=== PATIENT | male | born 1990 | race African-American/Black ===

== ENCOUNTER 2018-08-18 18:12 | Emergency (ER) | payer OTHER ==
[~2018-08-18] VITALS: Ht 177.8 cm; Wt 150.0 kg
[2018-08-18] MEDS ORDERED: HYD50 PO (18:21)
[2018-08-18] MEDS ORDERED: CEPHALEXIN MONOHYDRATE 500 MG CAPSULE PO ONE (20:45)
[2018-08-18] MEDS ORDERED: HYDROCODONE/ACETAMINOPHEN 5-325 MG TABLET PO ONE (20:45)
[2018-08-18] MEDS ORDERED: SULFAMETHOX/TRIMETH DS 800-160 MG/TABLET PO ONE (20:45)
[2018-08-18 21:15] VITALS: BP 149/97
[2018-08-19] MEDS ORDERED: TRAZ-220 PO (17:14)
== END 2018-08-18 21:21 | disposition home or self-care (01) ==
LOC: EMS 18:14
DX: L73.2 Hidradenitis suppurativa (principal); Z79.899 Other long term (current) drug therapy; F41.9 Anxiety disorder, unspecified

== ENCOUNTER 2018-08-19 16:35 | Emergency (ER) | payer OTHER ==
[~2018-08-19] VITALS: Ht 157.5 cm; Wt 150.0 kg
[~2018-08-19 16:35] MED LIST: HYD50 PO
[2018-08-19] MEDS ORDERED: TRAZ-220 PO (17:14)
[2018-08-19] MEDS ORDERED: HydrOXYzine PAMOATE 25 MG CAPSULE PO ONE (18:45)
[2018-08-19 18:53] LABS: BASOPHILS % (AUTO) 1.1 % (0.0-2.0); EOSINOPHILS % (AUTO) 4.4 % (1.0-6.0); HEMATOCRIT 48.9 % (41-53); LYMPHOCYTES # (AUTO) 3.1 K/uL (1.0-4.8); LYMPHOCYTES % (AUTO) 42.6 % (22.0-44.0); MEAN CORPUSCULAR HEMOGLOBIN 25.6 pg (26.0-34.0); MEAN CORPUSCULAR HGB CONC 32.8 G/dL (31.0-37.0); MEAN CORPUSCULAR VOLUME 78 fL (80-100); MONOCYTES # (AUTO) 0.7 K/uL (0.1-1.0); MONOCYTES % (AUTO) 9.1 % (2.0-9.0); NEUTROPHILS # (AUTO) 3.1 K/uL (1.8-7.7); NEUTROPHILS % (AUTO) 42.8 % (40.0-70.0); PLATELET COUNT (AUTO) 341 K/uL (150-450); RED BLOOD CELL COUNT(AUTO) 6.27 MIL/uL (4.50-5.90); RED CELL DISTRIBUTION WIDTH 13.6 % (11.5-14.5)
[2018-08-19 18:56] VITALS: BP 138/81
[2018-08-19 18:59] LABS: ANION GAP 9 mmol/L (8-16); CALCIUM, TOTAL 8.7 mg/dL (8.8-10.5); CARBON DIOXIDE 26 mmol/L (22-29); CHLORIDE 103 mmol/L (98-107); CREATININE 1.03 mg/dL (0.60-1.30); GLOMERULAR FILTR. RATE CALC > 60 mL/min (>60); GLUCOSE,RANDOM 102 mg/dL (70-110); POTASSIUM 4.1 mmol/L (3.5-5.1); SODIUM SERUM 138 mmol/L (136-145); UREA NITROGEN, BLOOD 8 mg/dL (7-18)
[2018-08-19 19:11] LABS: ALANINE AMINOTRANSFERASE 54 U/L (12-78); ALBUMIN 3.5 g/dL (3.4-5.0); ALKALINE PHOSPHATASE 93 U/L (46-116); ASPARTATE AMINOTRANSFERASE 22 U/L (15-37); BILIRUBIN,TOTAL 0.7 mg/dL (0.1-1.0); TOTAL PROTEIN, SERUM 7.6 g/dL (6.4-8.2)
== END 2018-08-19 18:59 | disposition home or self-care (01) ==
LOC: EMS 16:36
DX: F41.9 Anxiety disorder, unspecified (principal); Z79.899 Other long term (current) drug therapy
CPT/HCPCS: 36415; 80053; 85025; 99284; G0480

== ENCOUNTER 2018-09-12 11:24 | Emergency (ER) | payer OTHER ==
[~2018-09-12] VITALS: Ht 177.8 cm; Wt 150.0 kg
[~2018-09-12 11:24] MED LIST changes: +ALPR1TAB7 PO; +TRAZ-220 PO
[2018-09-12] MEDS ORDERED: HydrOXYzine PAMOATE 50 MG CAPSULE PO ONE (12:15)
[2018-09-12] MEDS ORDERED: ACETAMINOPHEN 500 MG TABLET PO ONE (12:45)
[2018-09-12] MEDS ORDERED: IBUPROFEN 800 MG TABLET PO ONE (13:15)
[2018-09-12 13:29] VITALS: BP 169/102
== END 2018-09-12 13:37 | disposition home or self-care (01) ==
LOC: EMS 11:25
DX: F41.9 Anxiety disorder, unspecified (principal); M54.9 Dorsalgia, unspecified; Z79.899 Other long term (current) drug therapy

== ENCOUNTER 2018-09-19 18:53 | Emergency (ER) | payer OTHER ==
[~2018-09-19] VITALS: Ht 157.5 cm; Wt 150.0 kg
[2018-09-19] MEDS ORDERED: HYDR50CA10 PO (19:34)
[2018-09-19 21:28] VITALS: BP 138/88
== END 2018-09-19 21:20 | disposition home or self-care (01) ==
LOC: EMS 18:54
DX: G89.29 Other chronic pain (principal); M54.5 Low back pain; F41.9 Anxiety disorder, unspecified; Z76.0 Encounter for issue of repeat prescription

== ENCOUNTER 2018-10-03 19:51 | Emergency (ER) | payer OTHER ==
[~2018-10-03] VITALS: Ht 177.8 cm; Wt 150.0 kg
[~2018-10-03 19:51] MED LIST changes: -ALPR1TAB7 PO; -HYD50 PO; +HYDR50CA10 PO
[2018-10-03 19:54] VITALS: BP 121/76
== END 2018-10-03 21:06 | disposition home or self-care (01) ==
LOC: EMS 19:51
DX: F41.9 Anxiety disorder, unspecified (principal); I10 Essential (primary) hypertension; Z76.0 Encounter for issue of repeat prescription

== ENCOUNTER 2018-10-18 12:42 | Emergency (ER) | payer OTHER ==
[~2018-10-18] VITALS: Ht 177.8 cm; Wt 150.0 kg
[2018-10-18] MEDS ORDERED: HYDR-4455 PO (12:47)
[2018-10-18] MEDS ORDERED: HYDROCODONE/ACETAMINOPHEN 5-325 MG TABLET PO ONE (15:30)
[2018-10-18] MEDS ORDERED: HydrOXYzine HCL 50 MG TABLET PO ONE (15:30)
[2018-10-18] MEDS ORDERED: HydrOXYzine PAMOATE 50 MG CAPSULE PO ONE (16:00)
[2018-10-18 16:46] VITALS: BP 135/88
== END 2018-10-18 16:48 | disposition home or self-care (01) ==
LOC: EMS 12:42
DX: F41.9 Anxiety disorder, unspecified (principal); I10 Essential (primary) hypertension; Z76.0 Encounter for issue of repeat prescription; Z88.6 Allergy status to analgesic agent

== ENCOUNTER 2018-11-04 17:01 | Emergency (ER) | payer OTHER ==
[~2018-11-04] VITALS: Ht 172.7 cm; Wt 150.0 kg
[~2018-11-04 17:01] MED LIST changes: +HYDR-4455 PO
[2018-11-04] MEDS ORDERED: HydrOXYzine PAMOATE 50 MG CAPSULE PO ONE (18:30)
[2018-11-04] MEDS ORDERED: HYDROCODONE/ACETAMINOPHEN 5-325 MG TABLET PO ONE (18:30)
[2018-11-04 18:47] VITALS: BP 140/89
== END 2018-11-04 18:49 | disposition home or self-care (01) ==
LOC: EMS 17:03
DX: G89.29 Other chronic pain (principal); F41.9 Anxiety disorder, unspecified; I10 Essential (primary) hypertension; E66.9 Obesity, unspecified; Z68.43 Body mass index [BMI] 50.0-59.9, adult; Z88.6 Allergy status to analgesic agent

== ENCOUNTER 2018-11-09 12:10 | Emergency (ER) | payer OTHER ==
[~2018-11-09] VITALS: Ht 177.8 cm; Wt 150.0 kg
[2018-11-09 13:18] VITALS: BP 151/82
== END 2018-11-09 13:25 | disposition home or self-care (01) ==
LOC: EMS 12:11
DX: F41.9 Anxiety disorder, unspecified (principal); I10 Essential (primary) hypertension; E66.9 Obesity, unspecified; Z88.6 Allergy status to analgesic agent; Z68.42 Body mass index [BMI] 45.0-49.9, adult

== ENCOUNTER 2018-11-18 17:33 | Emergency (ER) | payer OTHER ==
[~2018-11-18] VITALS: Ht 177.8 cm; Wt 150.0 kg
[2018-11-18 18:02] VITALS: BP 134/89
== END 2018-11-18 18:48 | disposition home or self-care (01) ==
LOC: EMS 17:34
DX: F41.9 Anxiety disorder, unspecified (principal); Z76.0 Encounter for issue of repeat prescription; Z79.899 Other long term (current) drug therapy

== ENCOUNTER 2019-01-20 12:56 | Emergency (ER) | payer OTHER ==
[~2019-01-20] VITALS: Ht 157.5 cm; Wt 150.0 kg
[2019-01-20] MEDS ORDERED: HydrOXYzine PAMOATE 50 MG CAPSULE PO ONE (14:30)
[2019-01-20 15:29] VITALS: BP 141/86
== END 2019-01-20 15:32 | disposition home or self-care (01) ==
LOC: EMS 12:57
DX: F41.9 Anxiety disorder, unspecified (principal); I10 Essential (primary) hypertension; Z76.0 Encounter for issue of repeat prescription; Z88.6 Allergy status to analgesic agent
CPT/HCPCS: 93005

== ENCOUNTER 2019-01-30 11:01 | Emergency (ER) | payer OTHER ==
[~2019-01-30] VITALS: Ht 177.8 cm; Wt 150.0 kg
[~2019-01-30 11:01] MED LIST changes: -HYDR-4455 PO; -TRAZ-220 PO
[2019-01-30] MEDS ORDERED: IOVERSOL 350 MG/ML 100 ML VIAL ONE (12:44)
[2019-01-30] MEDS ORDERED: SODIUM CHLORIDE 0.9% 0 ML ONE (12:45)
[2019-01-30] MEDS ORDERED: IOVERSOL 350 MG/ML 150 ML VIAL ONE (13:52)
[2019-01-30] MEDS ORDERED: HYDROCODONE/ACETAMINOPHEN 10-325 MG TABLET PO ONE (16:00)
[2019-01-30] MEDS ORDERED: SULFAMETHOX/TRIMETH DS 800-160 MG/TABLET PO ONE (16:00)
[2019-01-30] MEDS ORDERED: CEPHALEXIN MONOHYDRATE 500 MG CAPSULE PO ONE (16:00)
[2019-01-30 16:59] VITALS: BP 135/71
== END 2019-01-30 17:03 | disposition home or self-care (01) ==
LOC: EMS 11:01
DX: K61.1 Rectal abscess (principal); E66.9 Obesity, unspecified; I10 Essential (primary) hypertension; F41.9 Anxiety disorder, unspecified; Z79.899 Other long term (current) drug therapy; Z88.6 Allergy status to analgesic agent; Z68.42 Body mass index [BMI] 45.0-49.9, adult
CPT/HCPCS: 74176; J7050

== ENCOUNTER 2019-02-11 19:26 | Emergency (ER) | payer OTHER ==
[~2019-02-11] VITALS: Ht 177.8 cm; Wt 150.0 kg
[2019-02-11] MEDS ORDERED: HYD50 PO (19:56)
[2019-02-11] MEDS ORDERED: HydrOXYzine PAMOATE 50 MG CAPSULE PO ONE (21:00)
[2019-02-11 21:47] VITALS: BP 148/80
== END 2019-02-11 21:48 | disposition home or self-care (01) ==
LOC: EMS 19:27
DX: L02.31 Cutaneous abscess of buttock (principal); L03.317 Cellulitis of buttock; F41.9 Anxiety disorder, unspecified; R07.89 Other chest pain; E66.01 Morbid (severe) obesity due to excess calories; I10 Essential (primary) hypertension; Z68.42 Body mass index [BMI] 45.0-49.9, adult; Z88.6 Allergy status to analgesic agent

== ENCOUNTER 2019-02-25 10:01 | Emergency (ER) | payer OTHER ==
[~2019-02-25] VITALS: Ht 177.8 cm; Wt 150.0 kg
[~2019-02-25 10:01] MED LIST changes: +HYD50 PO; -HYDR50CA10 PO
[2019-02-25] MEDS ORDERED: TRAZ-220 PO (10:09)
[2019-02-25 11:32] VITALS: BP 145/92
== END 2019-02-25 11:50 | disposition home or self-care (01) ==
LOC: EMS 10:01
DX: G47.00 Insomnia, unspecified (principal); I10 Essential (primary) hypertension; F41.9 Anxiety disorder, unspecified; Z76.0 Encounter for issue of repeat prescription; Z88.6 Allergy status to analgesic agent

== ENCOUNTER 2019-03-15 17:30 | Emergency (ER) | payer OTHER ==
[~2019-03-15] VITALS: Ht 177.8 cm; Wt 150.0 kg
[~2019-03-15 17:30] MED LIST changes: +TRAZ-220 PO
[2019-03-15 17:32] VITALS: BP 156/94
[2019-03-15] MEDS ORDERED: HYDR50CA10 PO (17:38)
[2019-03-15] MEDS ORDERED: HydrOXYzine PAMOATE 50 MG CAPSULE PO ONE (18:30)
== END 2019-03-15 19:23 | disposition home or self-care (01) ==
LOC: EMS 17:31
DX: F41.9 Anxiety disorder, unspecified (principal); I10 Essential (primary) hypertension; Z76.0 Encounter for issue of repeat prescription; Z88.6 Allergy status to analgesic agent

== ENCOUNTER 2019-05-09 14:12 | Emergency (ER) | payer OTHER ==
[~2019-05-09] VITALS: Ht 177.8 cm; Wt 150.0 kg
[~2019-05-09 14:12] MED LIST changes: -HYD50 PO; +HYDR50CA10 PO; -TRAZ-220 PO
[2019-05-09] MEDS ORDERED: TRAZ-220 PO (14:47)
[2019-05-09] MEDS ORDERED: HydrOXYzine PAMOATE 50 MG CAPSULE PO ONE (15:30)
[2019-05-09 15:50] VITALS: BP 145/95
== END 2019-05-09 15:51 | disposition home or self-care (01) ==
LOC: EMS 14:12
DX: F41.9 Anxiety disorder, unspecified (principal); F32.9 Major depressive disorder, single episode, unspecified; I10 Essential (primary) hypertension; Z88.6 Allergy status to analgesic agent

== ENCOUNTER 2019-10-15 21:50 | Emergency (ER) | payer OTHER ==
[~2019-10-15] VITALS: Ht 175.3 cm; Wt 175.0 kg
[~2019-10-15 21:50] MED LIST changes: -HYDR50CA10 PO; +HYDR50CA9 PO; +TRAZ-220 PO
[2019-10-15 22:20] VITALS: BP 127/53
[2019-10-15] MEDS ORDERED: HydrOXYzine PAMOATE 50 MG CAPSULE PO ONE (23:15)
== END 2019-10-15 23:23 | disposition home or self-care (01) ==
LOC: EMS 21:51
DX: F41.9 Anxiety disorder, unspecified (principal); I10 Essential (primary) hypertension; E66.9 Obesity, unspecified; Z68.43 Body mass index [BMI] 50.0-59.9, adult

== ENCOUNTER 2019-11-13 12:12 | Emergency (ER) | payer OTHER ==
[~2019-11-13] VITALS: Ht 177.8 cm; Wt 152.3 kg
[~2019-11-13 12:12] MED LIST changes: -TRAZ-220 PO; +TRAZ-257 PO
[2019-11-13 12:15] VITALS: BP 144/106
[2019-11-13] MEDS ORDERED: HydrOXYzine PAMOATE 50 MG CAPSULE PO ONE (13:45)
== END 2019-11-13 13:52 | disposition home or self-care (01) ==
LOC: EMS 12:13
DX: F41.9 Anxiety disorder, unspecified (principal); I10 Essential (primary) hypertension; F17.210 Nicotine dependence, cigarettes, uncomplicated; Z88.6 Allergy status to analgesic agent
CPT/HCPCS: 99406

== ENCOUNTER 2019-12-27 15:40 | Emergency (ER) | payer OTHER ==
[~2019-12-27] VITALS: Ht 177.8 cm; Wt 152.3 kg
[2019-12-27] MEDS ORDERED: FLUO40CA PO (15:56)
[2019-12-27] MEDS ORDERED: QUET50TA22 PO (15:56)
[2019-12-27] MEDS ORDERED: HYD50 PO ×2 (15:56→16:35)
[2019-12-27] MEDS ORDERED: HYD25 PO (15:56)
[2019-12-27] MEDS ORDERED: HydrOXYzine HCL 50 MG TABLET PO ONE (16:45)
[2019-12-27 17:00] VITALS: BP 147/73
== END 2019-12-27 17:19 | disposition home or self-care (01) ==
LOC: EMS 15:41
DX: F41.9 Anxiety disorder, unspecified (principal); F17.210 Nicotine dependence, cigarettes, uncomplicated; I10 Essential (primary) hypertension; Z88.6 Allergy status to analgesic agent; Z76.0 Encounter for issue of repeat prescription
CPT/HCPCS: 99406

== ENCOUNTER 2020-01-05 15:26 | Emergency (ER) | payer OTHER ==
[~2020-01-05] VITALS: Ht 177.8 cm; Wt 170.4 kg
[~2020-01-05 15:26] MED LIST changes: +FLUO40CA PO; +HYD50 PO; -HYDR50CA9 PO; +QUET50TA22 PO
[2020-01-05] MEDS ORDERED: HYDR50CA9 PO (15:32)
[2020-01-05 15:40] VITALS: BP 157/100
== END 2020-01-05 16:43 | disposition home or self-care (01) ==
LOC: EMS 15:26
DX: F41.9 Anxiety disorder, unspecified (principal); G47.00 Insomnia, unspecified; R03.0 Elevated blood-pressure reading, without diagnosis of hypertension; E66.9 Obesity, unspecified; I10 Essential (primary) hypertension; Z79.899 Other long term (current) drug therapy; Z88.6 Allergy status to analgesic agent; Z76.0 Encounter for issue of repeat prescription; Z68.43 Body mass index [BMI] 50.0-59.9, adult

== ENCOUNTER 2020-02-06 13:08 | Emergency (ER) | payer OTHER ==
[~2020-02-06] VITALS: Ht 177.8 cm; Wt 175.0 kg
[~2020-02-06 13:08] MED LIST changes: -FLUO40CA PO; -HYD50 PO; +HYDR50CA9 PO; -QUET50TA22 PO
[2020-02-06 14:10] VITALS: BP 137/98
== END 2020-02-06 14:25 | disposition home or self-care (01) ==
LOC: EMS 13:08
DX: F41.9 Anxiety disorder, unspecified (principal); I10 Essential (primary) hypertension; Z76.0 Encounter for issue of repeat prescription; Z88.6 Allergy status to analgesic agent; Z79.899 Other long term (current) drug therapy

== ENCOUNTER 2020-05-02 21:56 | Emergency (ER) | payer OTHER ==
[~2020-05-02] VITALS: Ht 177.8 cm; Wt 175.0 kg
[2020-05-02 22:11] VITALS: BP 155/93
== END 2020-05-02 23:30 | disposition left against medical advice (07) ==
LOC: EMS 21:56
DX: F41.9 Anxiety disorder, unspecified (principal); Z53.21 Procedure and treatment not carried out due to patient leaving prior to being seen by health care provider

== ENCOUNTER 2020-06-12 14:27 | Emergency (ER) | payer OTHER ==
[~2020-06-12] VITALS: Ht 177.8 cm; Wt 175.0 kg
[2020-06-12 14:28] VITALS: BP 125/79
[2020-06-12] MEDS ORDERED: HydrOXYzine PAMOATE 50 MG CAPSULE PO ONE (15:30)
== END 2020-06-12 15:59 | disposition home or self-care (01) ==
LOC: EMS 14:28
DX: F41.9 Anxiety disorder, unspecified (principal); I10 Essential (primary) hypertension; Z88.6 Allergy status to analgesic agent

== ENCOUNTER 2020-06-22 22:05 | Emergency (ER) | payer OTHER ==
[~2020-06-22] VITALS: Ht 177.8 cm; Wt 179.6 kg
[2020-06-22 22:05] VITALS: BP 142/82
== END 2020-06-22 22:35 | disposition left against medical advice (07) ==
LOC: EMS 22:05
DX: F41.9 Anxiety disorder, unspecified (principal); Z53.21 Procedure and treatment not carried out due to patient leaving prior to being seen by health care provider

== ENCOUNTER 2020-08-10 22:12 | Emergency (ER) | payer OTHER ==
[~2020-08-10] VITALS: Ht 177.8 cm; Wt 150.0 kg
[2020-08-11 00:29] VITALS: BP 145/88
[2020-08-11] MEDS ORDERED: HYDR50CA9 PO (00:36)
== END 2020-08-11 00:38 | disposition home or self-care (01) ==
LOC: EMS 22:12
DX: F41.9 Anxiety disorder, unspecified (principal); I10 Essential (primary) hypertension; Z88.6 Allergy status to analgesic agent
CPT/HCPCS: 99283; Z7502

== ENCOUNTER 2020-09-05 13:28 | Emergency (ER) | payer OTHER ==
[~2020-09-05] VITALS: Ht 175.3 cm; Wt 163.6 kg
[2020-09-05 13:42] VITALS: BP 160/102
== END 2020-09-05 14:32 | disposition home or self-care (01) ==
LOC: EMS 13:32
DX: F41.9 Anxiety disorder, unspecified (principal); I10 Essential (primary) hypertension; Z76.0 Encounter for issue of repeat prescription; Z88.6 Allergy status to analgesic agent; Z79.899 Other long term (current) drug therapy
CPT/HCPCS: Z7502

== ENCOUNTER 2020-09-12 13:37 | Emergency (ER) | payer OTHER ==
[~2020-09-12] VITALS: Ht 177.8 cm; Wt 175.0 kg
[2020-09-12] MEDS ORDERED: HydrOXYzine PAMOATE 50 MG CAPSULE PO ONE (15:45)
[2020-09-12 16:11] VITALS: BP 150/77
== END 2020-09-12 16:20 | disposition home or self-care (01) ==
LOC: EMS 13:40
DX: F41.9 Anxiety disorder, unspecified (principal); I10 Essential (primary) hypertension; Z76.0 Encounter for issue of repeat prescription; Z88.6 Allergy status to analgesic agent

== ENCOUNTER 2020-10-13 13:16 | Emergency (ER) | payer OTHER ==
[~2020-10-13] VITALS: Ht 177.8 cm; Wt 159.1 kg
[2020-10-13 13:20] VITALS: BP 142/102
== END 2020-10-13 15:01 | disposition home or self-care (01) ==
LOC: EMS 13:16
DX: Z76.0 Encounter for issue of repeat prescription (principal); F41.9 Anxiety disorder, unspecified; I10 Essential (primary) hypertension; E66.8 Other obesity
CPT/HCPCS: Z7502

== ENCOUNTER 2021-04-22 14:52 | Emergency (ER) | payer OTHER ==
[~2021-04-22] VITALS: Ht 177.8 cm; Wt 172.7 kg
[2021-04-22 14:56] VITALS: BP 157/89
== END 2021-04-22 16:30 | disposition home or self-care (01) ==
LOC: EMS 14:55
DX: F41.9 Anxiety disorder, unspecified (principal); I10 Essential (primary) hypertension; Z76.0 Encounter for issue of repeat prescription; Z88.6 Allergy status to analgesic agent; Z88.5 Allergy status to narcotic agent
CPT/HCPCS: 99281; Z7502

== ENCOUNTER 2021-05-26 15:24 | Emergency (ER) | payer OTHER ==
[~2021-05-26] VITALS: Ht 177.8 cm; Wt 175.0 kg
[2021-05-26 17:30] VITALS: BP 149/87
== END 2021-05-26 17:48 | disposition home or self-care (01) ==
LOC: EMS 15:30
DX: F41.9 Anxiety disorder, unspecified (principal); Z76.0 Encounter for issue of repeat prescription; I10 Essential (primary) hypertension; Z88.6 Allergy status to analgesic agent; Z88.5 Allergy status to narcotic agent; Z79.899 Other long term (current) drug therapy
CPT/HCPCS: 99281; Z7502

== ENCOUNTER 2021-05-27 22:21 | Emergency (ER) | payer OTHER ==
[~2021-05-27] VITALS: Ht 160 cm; Wt 175.0 kg
[2021-05-27 22:23] VITALS: BP 138/98
== END 2021-05-28 00:01 | disposition home or self-care (01) ==
LOC: EMS 22:23
DX: F41.9 Anxiety disorder, unspecified (principal); I10 Essential (primary) hypertension; Z76.0 Encounter for issue of repeat prescription; Z88.6 Allergy status to analgesic agent; Z88.5 Allergy status to narcotic agent
CPT/HCPCS: 99281; Z7502

== ENCOUNTER 2021-08-06 17:19 | Emergency (ER) | payer OTHER ==
[~2021-08-06] VITALS: Ht 177.8 cm; Wt 195.0 kg
[2021-08-06 17:56] VITALS: BP 156/100
== END 2021-08-06 18:51 | disposition home or self-care (01) ==
LOC: EMS 17:20
DX: F41.9 Anxiety disorder, unspecified (principal); I10 Essential (primary) hypertension; Z88.6 Allergy status to analgesic agent; Z76.0 Encounter for issue of repeat prescription
CPT/HCPCS: 99283

== ENCOUNTER 2021-08-11 20:37 | Emergency (ER) | payer OTHER ==
[~2021-08-11] VITALS: Ht 177.8 cm; Wt 179.5 kg
[2021-08-11 21:59] VITALS: BP 127/80
== END 2021-08-11 22:08 | disposition home or self-care (01) ==
LOC: EMS 20:39
DX: F41.9 Anxiety disorder, unspecified (principal); Z76.0 Encounter for issue of repeat prescription; I10 Essential (primary) hypertension
CPT/HCPCS: 99281; Z7502

== ENCOUNTER 2021-09-05 15:45 | Emergency (ER) | payer OTHER ==
[~2021-09-05] VITALS: Ht 177.8 cm; Wt 175.0 kg
[2021-09-05 17:01] VITALS: BP 133/86
== END 2021-09-05 17:21 | disposition home or self-care (01) ==
LOC: EMS 15:49
DX: F41.9 Anxiety disorder, unspecified (principal); Z76.0 Encounter for issue of repeat prescription
CPT/HCPCS: 99283

== ENCOUNTER 2021-10-16 17:52 | Emergency (ER) | payer OTHER ==
[~2021-10-16] VITALS: Ht 177.8 cm; Wt 179.6 kg
[2021-10-16 18:18] VITALS: BP 136/73
== END 2021-10-16 19:16 | disposition home or self-care (01) ==
LOC: EMS 17:56
DX: F41.9 Anxiety disorder, unspecified (principal); I10 Essential (primary) hypertension; Z76.0 Encounter for issue of repeat prescription; Z88.6 Allergy status to analgesic agent; Z88.5 Allergy status to narcotic agent
CPT/HCPCS: 99281; 99283

== ENCOUNTER 2022-08-05 19:06 | Emergency (ER) | payer OTHER ==
[~2022-08-05] VITALS: Ht 177.8 cm; Wt 175.0 kg
[~2022-08-05 19:06] MED LIST changes: +HYDR50CA7 PO; -HYDR50CA9 PO
[2022-08-05] MEDS ORDERED: ACETAMINOPHEN 500 MG TABLET PO ONE (19:45)
[2022-08-05] MEDS ORDERED: CYCL-448 PO (20:28)
[2022-08-05] MEDS ORDERED: ACET-3385 PO (20:28)
[2022-08-05 21:00] VITALS: BP 137/77
== END 2022-08-05 21:10 | disposition home or self-care (01) ==
LOC: EMS 19:13
DX: S39.012A Strain of muscle, fascia and tendon of lower back, initial encounter (principal); S46.911A Strain of unspecified muscle, fascia and tendon at shoulder and upper arm level, right arm, initial encounter; F41.9 Anxiety disorder, unspecified; I10 Essential (primary) hypertension; E66.9 Obesity, unspecified; Z88.6 Allergy status to analgesic agent; Z88.5 Allergy status to narcotic agent; V89.2XXA Person injured in unspecified motor-vehicle accident, traffic, initial encounter; Y93.89 Activity, other specified; Y99.8 Other external cause status; Y92.89 Other specified places as the place of occurrence of the external cause
CPT/HCPCS: 72100; 99284; 73030-TC; Z7502; Z7610

== ENCOUNTER 2022-08-23 19:33 | Emergency (ER) | payer OTHER ==
[~2022-08-23] VITALS: Ht 177.8 cm; Wt 194.6 kg
[~2022-08-23 19:33] MED LIST changes: +ACET-3385 PO; +CYCL-448 PO
[2022-08-23 19:45] LABS: APPEARANCE,URINE HAZY (CLEAR); BILIRUBIN,URINE NEGATIVE (NEGATIVE); GLUCOSE, URINE (UA) >=1000 mg/dL (NEGATIVE); KETONES,URINE NEGATIVE (NEGATIVE); LEUKOCYTE ESTERASE ,URINE LARGE (NEGATIVE); NITRATE,URINE NEGATIVE (NEGATIVE); OCCULT BLOOD,URINE TRACE (NEGATIVE); PH,URINE 5.5 (5.0-8.0); PROTEIN,URINE 30-70 mg/dL (NEGATIVE); SPECIFIC GRAVITIY, URINE 1.036 (1.003-1.030); UROBILINOGEN,URINE <=1.0 mg/dL (<=1.0)
[2022-08-23 20:05] LABS: BACTERIA,URINE Moderate /HPF (None Seen); RBC,URINE 0-2 /HPF (0-2); SQUAMOUS EPITHELIAL CELL,UR Many /LPF (None Seen)
[2022-08-23] MEDS ORDERED: DOXY-354 PO (20:20)
[2022-08-23] MEDS ORDERED: CefTRIAXone SODIUM 1 GM/VIAL IM ONE (20:30)
[2022-08-23] MEDS ORDERED: LIDOCAINE/PF 1% 2 ML VIAL IM ONE (20:30)
[2022-08-23] MEDS ORDERED: CEPH-558 PO (20:57)
[2022-08-23 21:41] VITALS: BP 138/78
== END 2022-08-23 22:26 | disposition home or self-care (01) ==
LOC: EMS 19:37
DX: R30.0 Dysuria (principal); Z20.2 Contact with and (suspected) exposure to infections with a predominantly sexual mode of transmission; E66.9 Obesity, unspecified; F41.9 Anxiety disorder, unspecified; I10 Essential (primary) hypertension; N39.0 Urinary tract infection, site not specified; Z88.5 Allergy status to narcotic agent
CPT/HCPCS: 99283; 86592; 81001; 36415; 87086; 87491; 87591; 96372; J0696; J3490

== ENCOUNTER 2022-12-07 00:12 | Emergency (ER) | payer OTHER ==
[~2022-12-07] VITALS: Ht 177.8 cm; Wt 177.3 kg
[~2022-12-07 00:12] MED LIST changes: +CEPH-558 PO; +DOXY-354 PO
[2022-12-07 00:51] LABS: GLUCOMETER DEV NAME(LOC) ERT.5; GLUCOSE,POINT OF CARE 172 MG/DL (70-110)
[2022-12-07 02:09] VITALS: BP 127/85
[2022-12-07 02:15] LABS: BASOPHILS % (AUTO) 2.4 % (0.0-2.0); EOSINOPHILS % (AUTO) 2.6 % (1.0-6.0); HEMATOCRIT 48.1 % (41-53); HEMOGLOBIN 15.3 g/dL (13.5-17.5); LYMPHOCYTES # (AUTO) 3.8 K/uL (1.0-4.8); LYMPHOCYTES % (AUTO) 43.2 % (22.0-44.0); MEAN CORPUSCULAR HEMOGLOBIN 22.5 pg (26.0-34.0); MEAN CORPUSCULAR HGB CONC 31.9 G/dL (31.0-37.0); MEAN CORPUSCULAR VOLUME 71 fL (80-100); MONOCYTES # (AUTO) 0.6 K/uL (0.1-1.0); MONOCYTES % (AUTO) 7.3 % (2.0-9.0); NEUTROPHILS % (AUTO) 44.5 % (40.0-70.0); PLATELET COUNT (AUTO) 321 K/uL (150-450); RED BLOOD CELL COUNT(AUTO) 6.81 MIL/uL (4.50-5.90)
[2022-12-07 02:23] LABS: ANION GAP 11 mmol/L (8-16); CALCIUM, TOTAL 9.2 mg/dL (8.8-10.5); CARBON DIOXIDE 26 mmol/L (22-29); CHLORIDE 100 mmol/L (98-107); CREATININE 0.91 mg/dL (0.60-1.30); GLOMERULAR FILTR. RATE CALC > 60 mL/min (>60); GLUCOSE,RANDOM 169 mg/dL (70-110); POTASSIUM 3.9 mmol/L (3.5-5.1); SODIUM SERUM 137 mmol/L (136-145); UREA NITROGEN, BLOOD 13 mg/dL (7-18)
[2022-12-07 02:31] LABS: ALANINE AMINOTRANSFERASE 71 U/L (12-78); ALBUMIN 3.9 g/dL (3.4-5.0); ALKALINE PHOSPHATASE 87 U/L (46-116); ASPARTATE AMINOTRANSFERASE 24 U/L (15-37); BILIRUBIN,TOTAL 0.5 mg/dL (0.1-1.0); TOTAL PROTEIN, SERUM 8.1 g/dL (6.4-8.2)
== END 2022-12-07 03:28 | disposition home or self-care (01) ==
LOC: EMS 00:13
DX: R42 Dizziness and giddiness (principal); E66.01 Morbid (severe) obesity due to excess calories; E16.2 Hypoglycemia, unspecified; I10 Essential (primary) hypertension; F41.9 Anxiety disorder, unspecified; Z88.5 Allergy status to narcotic agent; Z88.6 Allergy status to analgesic agent
CPT/HCPCS: 80053; 82962; 85025; 93005; 99284

== ENCOUNTER 2023-03-05 18:29 | Emergency (ER) | payer OTHER ==
[~2023-03-05] VITALS: Ht 177.8 cm; Wt 175.0 kg
[~2023-03-05 18:29] MED LIST changes: -ACET-3385 PO; -CEPH-558 PO; -CYCL-448 PO; -DOXY-354 PO
[2023-03-05 18:38] VITALS: BP 141/95
[2023-03-05 19:45] LABS: APPEARANCE,URINE CLEAR (CLEAR); BILIRUBIN,URINE NEGATIVE (NEGATIVE); GLUCOSE, URINE (UA) >=1000 mg/dL (NEGATIVE); KETONES,URINE NEGATIVE (NEGATIVE); LEUKOCYTE ESTERASE ,URINE LARGE (NEGATIVE); NITRATE,URINE NEGATIVE (NEGATIVE); OCCULT BLOOD,URINE NEGATIVE (NEGATIVE); PH,URINE 5.5 (5.0-8.0); PROTEIN,URINE 30-70 mg/dL (NEGATIVE); SPECIFIC GRAVITIY, URINE 1.037 (1.003-1.030); UROBILINOGEN,URINE <=1.0 mg/dL (<=1.0)
[2023-03-05 22:09] LABS: BACTERIA,URINE Moderate /HPF (None Seen); RBC,URINE 0-2 /HPF (0-2); SQUAMOUS EPITHELIAL CELL,UR Few /LPF (None Seen)
== END 2023-03-05 20:50 | disposition left against medical advice (07) ==
LOC: EMS 18:31
DX: N39.0 Urinary tract infection, site not specified (principal); Z53.21 Procedure and treatment not carried out due to patient leaving prior to being seen by health care provider
CPT/HCPCS: 81001; 87086; 87186; 99281; Z7502

== ENCOUNTER 2023-04-26 21:42 | Emergency (ER) | payer OTHER ==
[~2023-04-26] VITALS: Ht 177.8 cm; Wt 147.7 kg
[2023-04-26 21:58] VITALS: TEMP 98.6
[2023-04-27 00:01] VITALS: BP 144/113; PULSE 89; RESP 18
[2023-04-27] MEDS ORDERED: CLOT15CR23 TP (00:03)
== END 2023-04-27 00:22 | disposition home or self-care (01) ==
LOC: EMS 21:45
DX: N48.1 Balanitis (principal); F41.9 Anxiety disorder, unspecified; I10 Essential (primary) hypertension; E66.9 Obesity, unspecified; Z87.440 Personal history of urinary (tract) infections; Z88.5 Allergy status to narcotic agent; Z88.8 Allergy status to other drugs, medicaments and biological substances
CPT/HCPCS: 87491; 87591; 99282; Z7502

== ENCOUNTER 2023-10-18 20:36 | Emergency (ER) | payer OTHER ==
[~2023-10-18] VITALS: Ht 177.8 cm; Wt 175.0 kg
[~2023-10-18 20:36] MED LIST changes: +CLOT15CR23 TP
[2023-10-18 20:41] VITALS: BP 133/102; PULSE 84; RESP 14; TEMP 97.9
[2023-10-18] MEDS ORDERED: HYDR50CA7 PO (21:32)
== END 2023-10-18 21:42 | disposition home or self-care (01) ==
LOC: EMS 20:36
DX: F41.9 Anxiety disorder, unspecified (principal); I10 Essential (primary) hypertension; Z87.440 Personal history of urinary (tract) infections; Z88.5 Allergy status to narcotic agent; Z88.8 Allergy status to other drugs, medicaments and biological substances; Z76.0 Encounter for issue of repeat prescription
CPT/HCPCS: 99281; Z7502

== ENCOUNTER 2023-11-26 23:12 | Emergency (ER) | payer OTHER ==
[~2023-11-26] VITALS: Ht 177.8 cm; Wt 172.0 kg
[2023-11-26 23:15] VITALS: TEMP 98.3
[2023-11-27] MEDS ORDERED: TRAZ-257 PO (00:36)
[2023-11-27] MEDS ORDERED: HYDR50CA7 PO (00:36)
[2023-11-27 01:09] VITALS: BP 146/89; PULSE 92; RESP 18
== END 2023-11-27 01:10 | disposition home or self-care (01) ==
LOC: EMS 23:13
DX: F41.9 Anxiety disorder, unspecified (principal); G47.00 Insomnia, unspecified; I10 Essential (primary) hypertension; Z76.0 Encounter for issue of repeat prescription; Z88.6 Allergy status to analgesic agent; Z88.8 Allergy status to other drugs, medicaments and biological substances
CPT/HCPCS: 99281; Z7502

== ENCOUNTER 2024-01-01 19:55 | Emergency (ER) | payer OTHER ==
[~2024-01-01] VITALS: Ht 177.8 cm; Wt 172.7 kg
[2024-01-01 19:59] VITALS: BP 128/91; PULSE 94; RESP 16; TEMP 98.3
[2024-01-01] MEDS ORDERED: TRAZ-257 PO ×2 (20:56→22:34)
[2024-01-01] MEDS ORDERED: HYDR50CA7 PO (20:56)
== END 2024-01-01 21:27 | disposition home or self-care (01) ==
LOC: EMS 19:55
DX: F41.9 Anxiety disorder, unspecified (principal); I10 Essential (primary) hypertension; Z88.6 Allergy status to analgesic agent; Z88.8 Allergy status to other drugs, medicaments and biological substances; Z76.0 Encounter for issue of repeat prescription
CPT/HCPCS: 99281; Z7502

== ENCOUNTER 2024-08-12 18:45 | Emergency (ER) | payer OTHER ==
[~2024-08-12] VITALS: Ht 175.3 cm; Wt 172.7 kg
[2024-08-12 18:52] VITALS: TEMP 98.2
[2024-08-12 23:17] VITALS: BP 130/80; PULSE 90; RESP 18; O2SAT 99
== END 2024-08-12 23:22 | disposition home or self-care (01) ==
LOC: EMS 19:14
DX: F41.9 Anxiety disorder, unspecified (principal); Z76.0 Encounter for issue of repeat prescription; Z88.5 Allergy status to narcotic agent; Z88.6 Allergy status to analgesic agent; Z79.899 Other long term (current) drug therapy
CPT/HCPCS: 82962; 99282; Z7502

== ENCOUNTER 2025-01-30 14:09 | Emergency (ER) | payer OTHER ==
[~2025-01-30] VITALS: Ht 177.8 cm; Wt 170.2 kg
[~2025-01-30 14:09] MED LIST changes: -CLOT15CR23 TP
[2025-01-30 14:14] VITALS: BP 142/94; PULSE 100; RESP 18; TEMP 98.6; O2SAT 99
[2025-01-30 14:27] LABS: COVID AG,FIA SOURCE NASAL SWAB
[2025-01-30 14:46] LABS: INFLUENZA TYPE A NEGATIVE FOR TYPE A (NEGATIVE); INFLUENZA TYPE B NEGATIVE FOR TYPE B (NEGATIVE); SARS-COV2 (COVID) ANTIGEN,FIA Negative (Negative)
[2025-01-30] MEDS ORDERED: HYDR-4062 PO (15:20)
[2025-01-30] MEDS ORDERED: AMOX-457 PO (15:20)
[2025-01-30] MEDS ORDERED: IBUP-1554 PO (15:20)
[2025-01-30] MEDS ORDERED: OXYM15SP63 NASAL (15:20)
[2025-01-30] MEDS ORDERED: HYDR100C2 PO (15:26)
[2025-01-30] MEDS ORDERED: TRAZ-257 PO (15:26)
== END 2025-01-30 15:35 | disposition home or self-care (01) ==
LOC: EMS 14:13
DX: J32.9 Chronic sinusitis, unspecified (principal); K08.89 Other specified disorders of teeth and supporting structures; F41.9 Anxiety disorder, unspecified; Z88.5 Allergy status to narcotic agent; Z88.6 Allergy status to analgesic agent; Z20.822 Contact with and (suspected) exposure to COVID-19
CPT/HCPCS: 87804; 99283

== ENCOUNTER 2025-08-03 02:59 | Emergency (ER) | payer OTHER ==
[~2025-08-03] VITALS: Ht 177.8 cm; Wt 181.8 kg
[2025-08-03 03:06] VITALS: TEMP 98.2
[2025-08-03 03:31] LABS: APPEARANCE,URINE CLEAR (CLEAR); GLUCOSE, URINE (UA) NEGATIVE (NEGATIVE); LEUKOCYTE ESTERASE ,URINE NEGATIVE (NEGATIVE); NITRATE,URINE NEGATIVE (NEGATIVE); OCCULT BLOOD,URINE NEGATIVE (NEGATIVE); PH,URINE DRUG SCREEN 5.5 (5.0-8.0); SPECIFIC GRAVITIY, URINE 1.011 (1.003-1.030)
[2025-08-03 03:44] LABS: ALCOHOL, URINE DRUG SCREEN NEGATIVE (NEGATIVE); AMPHET/METH SCREEN,URINE NEGATIVE (NEGATIVE); BARBITURATE SCREEN, URINE NEGATIVE (NEGATIVE); CANNABINOID SCREEN,URINE NEGATIVE (NEGATIVE); COCAINE SCREEN,URINE NEGATIVE (NEGATIVE); METHADONE SCREEN, URINE NEGATIVE (NEGATIVE)
[2025-08-03 03:59] LABS: PLATELET COUNT (AUTO) 290 K/uL (150-450); RED BLOOD CELL COUNT(AUTO) 6.39 MIL/uL (4.50-5.90); RED CELL DISTRIBUTION WIDTH 14.2 % (11.5-14.5); WHITE BLOOD COUNT (AUTO) 7.1 K/uL (4.5-11.0)
[2025-08-03 04:08] LABS: CALCIUM, TOTAL 8.5 mg/dL (8.8-10.5); CREATININE 0.76 mg/dL (0.60-1.30); GLOMERULAR FILTR. RATE CALC > 60 mL/min (>60); GLUCOSE,RANDOM 197 mg/dL (70-110); SODIUM SERUM 134 mmol/L (136-145); UREA NITROGEN, BLOOD 8 mg/dL (7-18)
[2025-08-03 05:22] VITALS: BP 121/77; PULSE 92; RESP 15; O2SAT 99
== END 2025-08-03 06:26 | disposition home or self-care (01) ==
LOC: EMS 03:30
DX: F41.9 Anxiety disorder, unspecified (principal); R41.0 Disorientation, unspecified; I10 Essential (primary) hypertension; Z88.6 Allergy status to analgesic agent; Z79.899 Other long term (current) drug therapy
CPT/HCPCS: 99283; 80048; 81003; 82962; 85025; 36415; 80307; G0480